=== PATIENT | female | born 1995 | race Caucasian/White ===

== ENCOUNTER 2017-04-14 14:40 | Emergency (ER) | payer OTHER ==
[2017-04-14 14:45] VITALS: BP 140/84; PULSE 88; TEMP 98.7; BMI 22.3
--- NOTE | 2017-04-14 14:46 | PDOC ---
Rapid Medical Evaluation Time Seen by Provider: 04/14/17 14:42 Medical Evaluation: 04/14/17 14:42 I have performed a brief in-person evaluation of this patient. The Patient presents with a chief complaint of: left lower abdominal pain x yesterday s/p insertion of Iud x 2 weeks ago. Also reports spotting .Denies dysuria Pertinent physical exam findings are: NAD unlabored breathing non tender abdomen or suprapubic area I have ordered the following: urinalysis, gc/chlamydia, urine The patient will proceed to the ED for further evaluation.
[2017-04-14 15:18] LABS: URINE APPEARANCE SLCLOUDY; URINE BILIRUBIN NEGATIVE (NEGATIVE); URINE BLOOD NEGATIVE (NEGATIVE); URINE COLOR YELLOW; URINE GLUCOSE (UA) NEGATIVE (NEGATIVE); URINE KETONE NEGATIVE (NEGATIVE); URINE NITRITE NEGATIVE (NEGATIVE); URINE PROTEIN NEGATIVE (NEGATIVE); URINE UROBILINOGEN NEGATIVE mg/dL (0.2-1.0)
--- NOTE | 2017-04-14 15:55 | PDOC ---
History of Present Illness - General Chief Complaint: Pain, Acute Stated Complaint: PAIN Time Seen by Provider: 04/14/17 14:42 - History of Present Illness Initial Comments: 04/14/17 15:48 The patient is a 22 yo f w/ no PMH who comes into the ED c/o 1 day of left groin pain following IUD placement 3 weeks ago. Patient states that she had the IUD placed without incident and had minor spotting shortly after the procedure which resolved. Starting one day ago, she started to feel a dull pain on the left side of her groin. The pain waxes and wanes, is felt more on walking and had no relieving factors. The pain does not radiate. The patient called her ADJUNCT PSYCHOLOGY INSTRUCTOR , Dr. Bernard, who instructed her to come to the ER for evaluation and ultrasound. The patient denies any associated symptoms including fevers, chills , vaginal bleeding or discharge, abdominal pain or dysuria. Past History - Past Medical History Allergies/Adverse Reactions: Allergies Allergy/AdvReac Type Severity Reaction Status Date / Time No Known Allergies Allergy Verified 04/14/17 14:42 COPD: No Other medical history: NONE - Suicide/Smoking/Psychosocial Hx Smoking History: Never smoked Information on smoking cessation initiated: No Hx Alcohol Use: No Drug/Substance Use Hx: No Substance Use Type: None Review of Systems - Review of Systems Able to Perform ROS?: Yes Is the patient limited [place]ian proficient: No Constitutional: No: Chills, Fever Respiratory: No: Cough, Shortness of Breath Cardiac (ROS): No: Chest Pain, Edema, Palpitations : No: Burning, Dysuria, Discharge, Urgency Neurological: No: Headache, Numbness, Tingling *Physical Exam - Vital Signs Last Vital Signs Temp Pulse Resp BP Pulse Ox 98.7 F 88 18 140/84 100 04/14/17 14:42 04/14/17 14:42 04/14/17 14:42 04/14/17 14:42 04/14/17 14:42 - Physical Exam General Appearance: Yes: Appropriately Dressed. No: Apparent Distress Respiratory/Chest: positive: Lungs Clear, Normal Breath Sounds. negative: Chest Tender, Respiratory Distress, Accessory Muscle Use Cardiovascular: positive: Regular Rhythm, Regular Rate, S1, S2. negative: Edema , JVD, Murmur, Gallop/S3, Gallop/S4 Female Pelvic Exam: positive: normal external exam, cervical os closed, discharge (white discharge seen around the os and in the vaginal vault. ), other (IUD strings in place). negative: vaginal bleeding Gastrointestinal/Abdominal: positive: Normal Bowel Sounds, Tender (tenderness in the lower abdomen and left groin). negative: Flat, Soft Musculoskeletal: negative: CVA Tenderness Extremity: positive: Normal Inspection Integumentary: positive: Normal Color, Dry, Warm Neurologic: positive: Fully Oriented, Alert, Normal Mood/Affect, Normal Response ED Treatment Course - ADDITIONAL ORDERS Additional order review: Laboratory Results 04/14/17 15:00 Urine Color Yellow Urine Appearance Slcloudy Urine pH 6.0 Ur Specific [place] 1.021 Urine Protein Negative Urine Glucose (UA) Negative Urine Ketones Negative Urine Blood Negative Urine Nitrite Negative Urine Bilirubin Negative Urine Urobilinogen Negative Urine HCG, Qual Negative - RADIOLOGY Radiology Studies Ordered: Category Date Time Status TRANSVAGINAL ULTRASOUND US [US] Stat Ultrasound 04/14/17 15:47 Ordered Medical Decision Making - Medical Decision Making 04/14/17 16:08 The patient is a 22 yo f w/ no PMH who complains of left sided abdominal and groin pain for the past 1 day. Patient was asymptomatic directly after IUD placement with minimal spotting which has resolved. The patient's ADJUNCT PSYCHOLOGY INSTRUCTOR is requesting an ultrasound to evaluate this pain. -UA, upreg negative -transvaginal US to evaluate for cyst 04/14/17 16:58 -pelvic exam reveals white exudate in the vaginal vault and the Os indicative of a yeast infection. -Diflucan 150mg once 04/14/17 18:32 -awaiting official read of ultrasound *DC/Admit/Observation/Transfer Diagnosis at time of Disposition: Yeast infection - Discharge Dispostion Disposition: HOME Condition at time of disposition: Improved Admit: No - Referrals Referrals: Fredy Bernard MD [Staff Physician] - Gali Kelly [Primary Care Provider] - Jorge Win MD [Staff Physician] - Shola Roca RES [Emergency Midlevel Provider] - - Patient Instructions Printed Discharge Instructions: DI for Vaginal Yeast Infection Additional Instructions: You should follow up with an aircraft instrument repairer doctor within 1-2 days of discharge home. You should also follow up with your primary care doctor within 1-2 days of discharge home. You may take tylenol for your pain. If your pain worsens, you begin to experience vaginal bleeding, chest pain, shortness of breath or if any of your symptoms become worse, please call your doctor or return to the emergency department. - Post Discharge Activity
[2017-04-14] MEDS ORDERED: FLUCONAZOLE 50 MG TABLET PO ONE (16:55)
[2017-04-14] MEDS ORDERED: FLUCONAZOLE 100 MG TABLET (UD) ONE (17:16)
--- NOTE | 2017-04-14 18:01 | PDOC ---
Attending Attestation - Resident Resident Name: ChanelleShola - ED Attending Attestation I have performed the following: I have examined & evaluated the patient, The case was reviewed & discussed with the resident, I agree w/resident's findings & plan, Exceptions are as noted - HPI HPI: 04/14/17 17:57 22 year old female c/ no past medical history, not currently sexually active p/ w pelvic pain x 1d. Denies dysuria, urinary frequency, vaginal bleeding or discharge. Had an IUD placed without complications 3 weeks ago at [facility]. Started to notice some discomfort, so pt came into ED. Has not had sex after IUD placement. No recent antibiotics. Noticed pain at the left inguinal region. - Physicial Exam PE: 04/14/17 17:58 Abdomen: soft, nd, nt Pelvic: +small 1x1 tender nodule in left inguinal region. no overlying cellulitis or erythema ANDROID DEVELOPER exam (chaperoned with renee Lilly): no blood but cottage cheese like discharge. IUD string noted. No tenderness appeciated. Findings c/w vaginal yeast infection. - Medical Decision Making 04/14/17 17:59 Vital Signs Temp Pulse Resp BP Pulse Ox 98.7 F 88 18 140/84 100 04/14/17 14:42 04/14/17 14:42 04/14/17 14:42 04/14/17 14:42 04/14/17 14:42 I agree with resident plan to do transvaginal ultrasound, urine test, ua. Though I suspect patient symptoms are secondary to vaginal yeast infection. Diflucan if test negative. IUD appears to be in place, will confirm with ultrasound. If workup negative, pt can be d/c after diflucan. 04/14/17 19:12 Urine Test Results Urine Color Yellow 04/14/17 15:00 Urine Appearance Slcloudy 04/14/17 15:00 Urine pH 6.0 (5.0-8.0) 04/14/17 15:00 Ur Specific [place] 1.021 (1.001-1.035) 04/14/17 15:00 Urine Protein Negative (NEGATIVE) 04/14/17 15:00 Urine Glucose (UA) Negative (NEGATIVE) 04/14/17 15:00 Urine Ketones Negative (NEGATIVE) 04/14/17 15:00 Urine Blood Negative (NEGATIVE) 04/14/17 15:00 Urine Nitrite Negative (NEGATIVE) 04/14/17 15:00 Urine Bilirubin Negative (NEGATIVE) 04/14/17 15:00 Ultrasound shows IUP in place and small R sided ovarian cyst.
[2017-04-14 20:23] LABS: URINE LEUK ESTERASE Negative (NEGATIVE)
== END 2017-04-14 19:42 | disposition home or self-care (01) ==
LOC: JER 14:40
DX: B37.3 Candidiasis of vulva and vagina (principal); Z97.5 Presence of (intrauterine) contraceptive device
CPT/HCPCS: 36415; 76830-TC; 81003; 84703; 87491; 87591; 99281-25

== ENCOUNTER 2017-11-15 21:51 | Emergency (ER) | payer SELFPAY ==
[2017-11-15 22:26] VITALS: BP 118/65; PULSE 83; TEMP 98.6; BMI 24.8
--- NOTE | 2017-11-15 22:33 | PDOC ---
History of Present Illness - General Chief Complaint: Pain Stated Complaint: ABDOMINAL PAIN Time Seen by Provider: 11/15/17 22:33 - History of Present Illness Initial Comments: 11/15/17 22:58 The patient is a 22 year old female with no significant PMH who presents for evaluation of pain with urination. The patient reports a 1 day history of pain with urination and lower abdominal cramping with urination prompting her presentation to the ED for further evaluation. She otherwise denies fevers, chills, SOB, chest pain, nausea, vomiting, or changes with bowel movements. Past History - Past Medical History Allergies/Adverse Reactions: Allergies Allergy/AdvReac Type Severity Reaction Status Date / Time No Known Allergies Allergy Verified 11/15/17 22:21 Home Medications: Ambulatory Orders Cephalexin Monohydrate [Keflex -] 500 mg PO BID #14 capsule 11/15/17 Fluconazole [Diflucan -] 100 mg PO DAILY #7 tablet 11/15/17 COPD: No Other medical history: Pt denies - Suicide/Smoking/Psychosocial Hx Smoking History: Never smoked Have you smoked in the past 12 months: No Information on smoking cessation initiated: No Hx Alcohol Use: No Drug/Substance Use Hx: No Substance Use Type: None Review of Systems - Review of Systems Comments:: 11/15/17 23:00 Constitutional: No fevers, chills, fatigue, malaise HEENT: No Rhinorrhea, nasal congestion, visual changes Cardiovascular: No chest pain, syncope, palpitations, lightheadedness Respiratory: No Cough, SOB, Hemoptysis, Gastrointestinal: No Abdominal pain, Nausea, Vomiting, Constipation, Diarrhea, Melena Genitourinary: Dysuria. No Frequency, Urgency, Hesitancy, Hematuria, Flank pain Musculoskeletal: No Myalgia, arthralgia Skin: No rashes, itching, bruising, pallor Neurologic: No Headache, Dizziness, Numbness, Weakness, or Tingling Psychiatric: No Hallucinations. No SI or HI *Physical Exam - Vital Signs Last Vital Signs Temp Pulse Resp BP Pulse Ox 98.6 F 83 18 118/65 100 11/15/17 22:22 11/15/17 22:22 11/15/17 22:22 11/15/17 22:22 11/15/17 22:22 - Physical Exam Comments: 11/15/17 23:01 General Appearance: Nourished. No Apparent Distress HEENT: EOMI, VICTOR MANUEL. No Pharyngeal Erythema, Tonsillar Exudate, Tonsillar Erythema Neck: No Cervical Lymphadenopathy Respiratory/Chest: Lungs Clear, Normal Breath Sounds. No Crackles, Rales, Rhonchi, Wheezing Cardiovascular: Regular Rhythm, Regular Rate. No Murmur, Gallops, Rubs Gastrointestinal/Abdominal: Normal Bowel Sounds, Soft. No Guarding, Rebound, Tenderness Musculoskeletal: No CVA Tenderness Extremity: Normal Capillary Refill Integumentary: Normal Color, Dry, Warm Neurologic: Fully Oriented, Alert, Normal Mood/Affect, Normal Response, Medical Decision Making - Medical Decision Making 11/15/17 23:01 The patient is a 22 year old female with no significant PMH who presents for evaluation of pain with urination. Differential includes but is not limited to: UTI, Cystitis, Yeast Infection. Given the patient's history and physical exam, it is likely the patient's symptoms are due to a UTI. We will obtain a ua, urine culture, urine preg to evaluate further for possible etiologies. We will continue to monitor and reassess. *DC/Admit/Observation/Transfer Diagnosis at time of Disposition: UTI (urinary tract infection) Qualifiers: Urinary tract infection type: site unspecified Hematuria presence: without hematuria Qualified Code(s): N39.0 - Urinary tract infection, site not specified - Discharge Dispostion Disposition: HOME Condition at time of disposition: Stable Decision to Admit order: No - Prescriptions Prescriptions: Cephalexin Monohydrate [Keflex -] 500 mg PO BID #14 capsule Fluconazole [Diflucan -] 100 mg PO DAILY #7 tablet - Referrals - Patient Instructions Printed Discharge Instructions: DI for Urinary Tract Infection (UTI) Additional Instructions: Please return to the ER if you experience concerning or worsening symptoms including worsening pain, fevers, or vomiting. Your lab results show that you have a urinary tract infection. We have sent a prescription for antibiotics to your pharmacy that you should take twice a day for 7 days. We have also sent a prescription for anti-fungal medication to your pharmacy that you should take daily for 7 days. Please call to schedule a follow up appointment with your primary care provider within 2-3 days to discuss your ER visit and further management of your symptoms. - Post Discharge Activity
--- NOTE | 2017-11-15 22:47 | PDOC ---
Attending Attestation - HPI HPI: 11/15/17 23:06 Pt is a 22 yo F with no PMHx who presents to the ED with dysuria and lower abdominal cramping since yesterday. Patient denied taking any medications for relief and presents to the ED for further evaluation. Patient denies fever/ chills, hematuria, urgency, flank pain. PCP: None - Physicial Exam PE: 11/15/17 23:06 GENERAL: The patient is in no acute distress. HEAD: Normal with no signs of trauma. EYES: PERRLA, EOMI, sclera anicteric, conjunctiva clear. ENT: Ears normal, nares patent, oropharynx clear without exudates. Moist mucous membranes. NECK: Normal range of motion, supple without lymphadenopathy, JVD, or masses. LUNGS: Breath sounds equal, clear to auscultation bilaterally. No wheezes, and no crackles. HEART:Regular rate and rhythm, normal S1 and S2 without murmur, rub or gallop. ABDOMEN: Soft, nontender, normoactive bowel sounds. No guarding, no rebound. EXTREMITIES: Normal range of motion, no edema. No clubbing or cyanosis. No erythema, or tenderness. NEUROLOGICAL: Cranial nerves II through XII grossly intact. Normal speech. No focal neurological deficits. MUSCULOSKELETAL: Back nontender to palpation, no CVA tenderness SKIN: Warm, Dry, normal turgor, no rashes or lesions noted. - Medical Decision Making 11/15/17 23:06 Documentation prepared by Meghann Sanchez, acting as medical research tech for Judy Cho MD <Meghann Sanchez - Last Filed: 11/15/17 23:06> - Resident Resident Name: Daniel Shell - ED Attending Attestation I have performed the following: I have examined & evaluated the patient, The case was reviewed & discussed with the resident, I agree w/resident's findings & plan, Exceptions are as noted - Medical Decision Making 11/15/17 23:44 Laboratory Tests 11/15/17 23:08 Urine Blood Negative Urine Nitrite Positive Ur Leukocyte Esterase 1+ H Urine WBC (Auto) 45 Urine RBC (Auto) 1 Pt labs and symptoms consistent with UTI No flank pain No systemic signs of illness Will discharge on po antibiotics Follow up with PMD Clinical Impression: UTI, initial presentation <Judy Cho - Last Filed: 11/17/17 00:22>
[2017-11-15 23:23] LABS: URINE APPEARANCE CLEAR; URINE BILIRUBIN NEGATIVE (<2.0 mg/dL); URINE COLOR AMBER; URINE GLUCOSE (UA) NEGATIVE (NEGATIVE); URINE KETONE NEGATIVE (NEGATIVE); URINE NITRITE POSITIVE (NEGATIVE); URINE PROTEIN NEGATIVE (NEGATIVE); URINE UROBILINOGEN 4.0 E.U/dl mg/dL (0.2-1.0)
[2017-11-15 23:28] LABS: URINE LEUK ESTERASE 1+ (NEGATIVE)
[2017-11-15 23:29] LABS: EPI CELLS RARE /HPF (FEW)
[2017-11-15 23:45] LABS: HCG,QUALITATIVE URINE NEGATIVE
== END 2017-11-16 00:14 | disposition home or self-care (01) ==
LOC: JER 21:51
DX: N39.0 Urinary tract infection, site not specified (principal)
CPT/HCPCS: 81003; 81015; 84703; 87086; 87186; 99282-25